=== PATIENT | male | born 1940 | race Caucasian/White ===

== ENCOUNTER → 2019-11-03 | Outpatient (CLI) | payer MEDICARE ==
[~2019-11-03] MED LIST: IOPAMIDOL 370 MG/ML 200 ML INFUS..BTL INJ ONE; SODIUM CHLORIDE 0.9% 500ML 500 ML ONE; SODIUM CHLORIDE 0.9% 50ML 50 ML ONE; Z.0.CIPRO750 MG; Z.0.DIFLUNISAL500 MG; Z.0.JALYN 0.5-0.41 E; Z.0.LOTENSIN20 MG
[2019-11-03 14:42] LABS: CREATININE, SERUM 1.35 mg/dL (0.72-1.25)
--- NOTE | 2019-11-04 09:04 | Diagnostic Imaging Report ---
Examination:CT SOFT TISSUE NECK WITH CONTRAST History: Enlarged lymph nodes. Comparison studies: None Technique: Axial images from the skull base to the thoracic inlet Coronal and sagittal reformatted images. Dose modulation, iterative reconstruction, and/or weight based adjustment of the mA/kV was utilized to reduce the radiation dose to as low as reasonably achievable. Intravenous contrast: 100mL of Isovue 370. Findings: Soft tissues: No abnormalities. Aerodigestive tract: No abnormality. Lymph nodes: No radiographically significant adenopathy. Vessels: Arteries and veins are patent. Nonstenotic atherosclerotic calcification of the right carotid bifurcation and distal left common carotid artery. Thyroid gland: Normal in size and homogeneous. Submandibular glands: Normal in size and fatty. A 1.3 x 1.5 x 1.4cm (superoinferior x anteroposterior x transverse dimensions) peripherally enhancing lesion of the lateral and inferior margin of the left submandibular gland. Parotid glands: Normal in size and homogeneous. Orbits: No abnormalities. Paranasal sinuses: Clear. Temporal bones: No abnormalities. Skull base and facial bones: Intact. Cervical spine: Disc osteophytes from C3-C4 through C5-C6 without canal stenosis. Severe left foraminal narrowing at C3-C4. No disc herniation or significant (moderate or severe) foraminal or canal stenosis at other cervical levels. Bilateral facet arthropathy from C3-C6. Visualized lung apices: No abnormalities. IMPRESSION: 1. 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 Excisional biopsy is recommended. 2. No concerning adenopathy. Signed by: Dr. Celina Alan M.D. on 11/04/2019 9:00 AM
== END ==
LOC: CT 13:27
PROVIDERS: ATTEND Internal Medicine
DX: R59.9 Enlarged lymph nodes, unspecified (principal)
CPT/HCPCS: 36415; 70491; 82565; 84520; 96360; J7040; Q9967

== ENCOUNTER → 2024-07-13 | Outpatient (REF) | payer MEDICARE ==
[~2024-07-13] MED LIST changes: -IOPAMIDOL 370 MG/ML 200 ML INFUS..BTL INJ ONE; -SODIUM CHLORIDE 0.9% 500ML 500 ML ONE; -SODIUM CHLORIDE 0.9% 50ML 50 ML ONE
== END ==
LOC: RAD 15:04
PROVIDERS: ATTEND Internal Medicine
DX: M54.50 Low back pain, unspecified (principal)
CPT/HCPCS: 72100